=== PATIENT | female | born 1975 | race Caucasian/White ===

== ENCOUNTER 2021-01-30 09:05 | Emergency (ER) | payer OTHER ==
[~2021-01-30 09:05] MED LIST: EVENING PRIMR1000 MG PO; FLONASE ALLER15.8 ML; FOLIC ACID PO; GLUCOPHAGE XR750 MG PO; METHOCARBAMOL500 MG PO; MOBIC15 MG PO; OXYCODON-ACETA1 EAC1 PO; PERCOCET 5-3251 EACH PO; PERCOCET 7.5/321 TAB PO; VITAMIN B-121000 MC1 IM; VITAMIN D3 PO; VOLTAREN100 GM TOP; WELLBUTRIN XL300 MG PO; ZOLOFT100 M1 PO
[2021-01-30 09:55] LABS: BASOPHIL 0.7 % (0-2); EOSINOPHIL 0.6 % (0-5); HCT 40.5 % (37.0-47.0); HGB 13.5 g/dl (12.5-16.0); LYMPHOCYTE 24.1 % (15-48); MCH 32.8 pg (25.0-31.0); MCHC 33.3 g/dL (32.0-36.0); MCV 98.3 fL (78.0-100.0); MONOCYTE 5.6 % (0-12); MPV 9.3 fL (6.0-9.5); NEUTROPHIL 68.6 % (41-80); NRBC 0; PLT 284 K/uL (150-400); RBC 4.12 M/uL (4.20-5.40); RDW 13.6 % (11.5-14.0); WBC 7.1 K/uL (4.0-10.5)
[2021-01-30 10:10] LABS: BILIRUBIN NEGATIVE (NEGATIVE); BLOOD NEGATIVE Ery/uL (NEGATIVE); CLARITY CLEAR (CLEAR); COLOR YELLOW (YELLOW); GLUCOSE (U) NORMAL (NORMAL); LEUKOCYTES NEGATIVE Leu/uL (NEGATIVE); NITRITE NEGATIVE (NEGATIVE); PROTEIN NEGATIVE (NEGATIVE); SPECIFIC GRAVITY >=1.030 (1.001-1.030); UROBILINOGEN 0.2 mg/dL (0.2-1.0); pH 5.5 (5.0-9.0)
[2021-01-30 10:11] LABS: ALBUMIN 4.2 g/dL (3.4-5.0); BILIRUBIN - TOTAL 0.3 mg/dL (0.2-1.0); BUN/CREAT RATIO (CALC) 21.1 RATIO; CREATININE 0.76 mg/dL (0.51-0.95); GLOBULIN (CALCULATION) 3.3 g/dL; TOTAL PROTEIN 7.5 g/dL (6.4-8.2)
[2021-02-10] MEDS ORDERED: OXYCODON-ACETA1 EAC1 PO (11:24)
[2021-03-18] MEDS ORDERED: OXYCODONE-ACET1 EAC1 PO (14:31)
[2021-05-05] MEDS ORDERED: OXYCODONE-ACET1 EAC1 PO (17:58)
== END 2021-01-30 13:06 | disposition home or self-care (01) ==
LOC: FER 09:05
PROVIDERS: Emergency Medicine
DX: N83.8 Other noninflammatory disorders of ovary, fallopian tube and broad ligament (principal); M54.5 Low back pain; R10.11 Right upper quadrant pain; R11.2 Nausea with vomiting, unspecified; R19.7 Diarrhea, unspecified; Z90.49 Acquired absence of other specified parts of digestive tract
CPT/HCPCS: 36415; 80053; 81003; 83690; 85025; Q9967